=== PATIENT | female | born 1955 | race African-American/Black ===

== ENCOUNTER 2019-10-21 15:39 | Outpatient (CLI) | payer MEDICARE ==
--- NOTE | 2019-10-21 15:57 | RAD ---
EXAM: 5 views of the cervical spine HISTORY: Cervical spondylolisthesis COMPARISON: None FINDINGS: AP, lateral, flexion/extension, and open mouth odontoid views of the cervical spine shows n ormal height and alignment of the vertebral bodies and intervertebral discs without fracture or subluxation. The patient is status post anterior fusion of C6 and C7 with a plate and screws. Interve florence disc spacer is seen. No perihardware lucency is seen. No residual degenerative changes are seen. No prevertebral soft tissue swelling is seen. Alignment is unchanged with flexion and extensio n. IMPRESSION: Postsurgical changes of the cervical spine without evidence of complication
== END 2019-10-21 15:40 | disposition home or self-care (01) ==
LOC: RAD 15:39
PROVIDERS: ATTEND Neurological Surgery
DX: M43.12 Spondylolisthesis, cervical region (principal); Z98.890 Other specified postprocedural states
CPT/HCPCS: 72050